=== PATIENT | female | born 1950 | race Caucasian/White ===

== ENCOUNTER 2017-02-07 08:36 | Emergency (ER) | payer MEDICARE, OTHER ==
--- NOTE | 2017-02-07 09:38 | ER PHYSICIAN DOCUMENTATION ---
Physician Documentation [facility] Name:Srini Guevara Age:66 yrs Sex:Female :1950 Arrival Date:02/07/2017 Time:08:36 Bed1 Private MD: Maurisio Mcmillan Disposition: 02/07/17 09:18 Discharged to Home/Self Care. Impression: Finger Laceration. - Condition is Good. - Discharge Instructions: FINGER LACERATION - LACERATION, Hand. - Medical Reconciliation form form. - Follow up: Private Physician; When: As needed; Reason: Worsening of condition. - Problem is new. - Symptoms have improved. HPI: 02/07 09:15 This 66 yrs old Female presents to ER via Private Vehicle with complaints of sc Thumb Injury. 09:15 The patient or guardian reports a laceration, clean. The complaints affect the palmar sc aspect of distal phalanx of right thumb. Context: The problem was sustained at home, resulted from slicer. Onset: The symptom(s)/episode began/occurred 21 hour(s) ago. Associated signs and symptoms: The patient has no apparent associated signs or symptoms. Historical: - Allergies: No known drug Allergies; - Home Meds: 1. losartan oral 2. anastrozole oral - PMHx: Hypertension; BREAST CANCER; - PSHx: Appendectomy; Cholecysectomy; ; BREAST ; - Tetanus: < 10 years. - Ebola Screening: : Patient negative for fever greater than or equal to 101.5 degrees Fahrenheit, and additional compatible Ebola Virus Disease symptoms. Patient denies exposure to infectious person. Patient denies travel to an Ebola-affected area in the 21 days before illness onset. No symptoms or risks identified at this time. . - Immunization history: Flu Vaccine < 1 year. - Social history: Smoking status: Patient states was never smoker of tobacco. ROS: 09:16 Constitutional: Negative for fever, chills, and weight loss. sc Eyes: Negative for injury, pain, redness, and discharge. ENT: Negative for injury, pain, and discharge. Neck: Negative for injury, pain, and swelling. Cardiovascular: Negative for chest pain, palpitations, and edema. Respiratory: Negative for shortness of breath, cough, wheezing, and pleuritic chest pain. Back: Negative for injury and pain. 09:16 Neuro: Negative for headache, weakness, numbness, tingling, and seizure. sc 09:16 MS/extremity: Positive for injury or acute deformity. Exam: Constitutional: This is a well developed, well nourished patient who is awake, alert, and in no acute distress. Head/Face: Normocephalic, atraumatic. Eyes: Pupils equal round and reactive to light, extra-ocular motions intact. Lids and lashes normal. Conjunctiva and sclera are non-icteric and not injected. Cornea within normal limits. Periorbital areas with no swelling, redness, or edema. ENT: Nares patent. No nasal discharge, no septal abnormalities noted. Tympanic membranes are normal and external auditory canals are clear. Oropharynx with no redness, swelling, or masses, exudates, or evidence of obstruction, uvula midline. Mucous membranes moist. 09:16 Neuro: Awake and alert, GCS 15, oriented to person, place, time, and situation. sc Cranial nerves II-XII grossly intact. Motor strength 5/5 in all extremities. Sensory grossly intact. Cerebellar exam normal. Normal gait. 09:16 Musculoskeletal/extremity: Extremities: grossly normal except: laceration, small skin avulsion, non-suturable, lymphedema in that arm, no sxs infxn. 09:16 Skin: Exam negative for acute changes. Vital Signs: 08:57 BP 168 / 85; Pulse 96; Resp 16; Temp 98.2; Pulse Ox 93% on R/A; Weight 61.23 kg; Height lc 5 ft. 2 in. (157.48 cm); Pain 3/10; 08:57 Body Mass Index 24.69 (61.23 kg, 157.48 cm) MDM: 09:03 Patient medically screened. sc 09:17 Differential diagnosis: non suturable lac. Data reviewed: vital signs, nurses notes, sc and as a result, I will discharge patient. Counseling: I had a detailed discussion with the patient and/or guardian regarding: the historical points, exam findings, and any diagnostic results supporting the discharge/admit diagnosis, the need for outpatient follow up, to return to the emergency department if symptoms worsen or persist or if there are any questions or concerns that arise at home. 02/07 09:18 Order name: Wound Care; Complete Time: 09:24 sc Dispensed Medications: 09:24 Drug: Bacitracin Ointment (500 unit/g) 1 application; Route: Topical; Infused Over: 1 lc mins; Site: affected area; Follow up: Response: No adverse reaction lc Signatures: Amanda Sharif RN RN lc Chew, Scott, MD MD ks Breanne Hopson
--- NOTE | 2017-02-07 09:38 | ER NURSING DOCUMENTATION ---
Nurse's Notes [facility] Name:Srini Guevara Age:66 yrs Sex:Female :1950 Arrival Date:02/07/2017 Time:08:36 Bed1 Private MD: Diagnosis:Finger Laceration Presentation: 02/07 08:45 Presenting complaint: Patient states: CUT RIGHT THUMB ON A SLICER LAST PM AND STILL lc OPEN AND BLEEDING. Transition of care: Home. 08:45 Acuity: ROBINSON 4 08:45 Method Of Arrival: Private Vehicle 08:50 Notified ED Physician of patient's arrival and CC. lc Triage Assessment: 08:55 General: Appears in no apparent distress, Behavior is cooperative, pleasant. Pain: lc Complains of pain in palmar aspect of distal phalanx of right thumb Pain At worst was 3 out of 10 on a pain scale. Quality of pain is described as throbbing. Musculoskeletal: Circulation, motion, and sensation intact Capillary refill < 3 seconds Range of motion intact in all extremities. Injury Description: Laceration sustained to palmar aspect of distal phalanx of right thumb is clean, 0.5 to 2.5 cm long, was sustained 1 day ago. is bleeding a small amount. Historical: - Allergies: No known drug Allergies; - Home Meds: 1. losartan oral 2. anastrozole oral - PMHx: Hypertension; BREAST CANCER; - PSHx: Appendectomy; Cholecysectomy; ; BREAST ; - Tetanus: < 10 years. - Ebola Screening: : Patient negative for fever greater than or equal to 101.5 degrees Fahrenheit, and additional compatible Ebola Virus Disease symptoms. Patient denies exposure to infectious person. Patient denies travel to an Ebola-affected area in the 21 days before illness onset. No symptoms or risks identified at this time. . - Immunization history: Flu Vaccine < 1 year. - Social history: Smoking status: Patient states was never smoker of tobacco. Screenin:58 Infectious Disease Risk None. Abuse screen: Denies threats or abuse. Denies injuries lc from another. Nutritional screening: No deficits noted. Vital Signs: 08:57 BP 168 / 85; Pulse 96; Resp 16; Temp 98.2; Pulse Ox 93% on R/A; Weight 61.23 kg; Height lc 5 ft. 2 in. (157.48 cm); Pain 3/10; 08:57 Body Mass Index 24.69 (61.23 kg, 157.48 cm) ED Course: 08:38 Patient arrived in ED. arc 08:45 Amanda Sharif, RN is Primary Nurse. 08:53 Triage completed. 08:59 Valuables Remains with patient Patient has correct armband on for positive lc identification. Bed in low position. Call light in reach. Adult w/ patient. 09:03 Maurisio Toledo MD is Attending Physician. ne 09:36 Wound care to abrasion, located on palmar aspect of distal phalanx of right thumb was cleaned with soap and water, dressed with bacitracin Tube Gauze Telfa Patient tolerated well. Administered Medications: 09:24 Drug: Bacitracin Ointment (500 unit/g) 1 application; Route: Topical; Infused Over: 1 lc mins; Site: affected area; 09:24 Follow up: Response: No adverse reaction Outcome: 09:18 Discharge ordered by . ne 09:36 Discharged to home ambulatory, with significant other. 09:36 Condition: improved 09:36 Discharge Assessment: Patient awake, alert and oriented x 3. No cognitive and/or functional deficits noted. Patient verbalized understanding of disposition instructions. 09:36 Discharge instructions given to patient, significant other, Instructed on discharge instructions, follow up and referral plans. Demonstrated understanding of instructions. 09:37 Patient left the ED. 06 17:07 Discharge F/U Call: Spoke with: patient. other: Name: pt is doing much better. pt st has no questions or concerns. Signatures: Sangeeta Sheffield RN RN Amanda Sharif, Maurisio Levy RN, MD MD ne Joan Toledo, Reg [facility], Breanne rh
== END 2017-02-07 09:38 | disposition home or self-care (01) ==
LOC: ER 08:36
DX: S61.011A Laceration without foreign body of right thumb without damage to nail, initial encounter (principal); W29.0XXA Contact with powered kitchen appliance, initial encounter; Y92.010 Kitchen of single-family (private) house as the place of occurrence of the external cause; Y93.G9 Activity, other involving cooking and grilling; I10 Essential (primary) hypertension; Z79.899 Other long term (current) drug therapy; Z85.3 Personal history of malignant neoplasm of breast
CPT/HCPCS: 99282; 99283